=== PATIENT | female | born 1995 ===

== ENCOUNTER 2022-03-13 13:10 | Outpatient (CLI) | payer OTHER | END 2022-03-13 13:12 | disposition home or self-care (01) | LOC: SONOGRAMA 13:10 | DX: N60.11 Diffuse cystic mastopathy of right breast (principal); N60.12 Diffuse cystic mastopathy of left breast; N93.9 Abnormal uterine and vaginal bleeding, unspecified; R10.2 Pelvic and perineal pain ==